=== PATIENT | male | born 1995 | race African-American/Black ===

== ENCOUNTER 2020-09-19 04:08 | Emergency (ER) | payer SELFPAY ==
[~2020-09-19 04:08] MED LIST: BENTYL10 MG PO; CLARITIN-D 121 EACH PO; IBUPROFEN800 MG PO; SUDAFED30 MG PO; TAMIFLU 75MG CA75 MG PO; TESSALON PERLE100 MG PO; ZOFRAN8 MG PO
[2020-09-19 04:31] LABS: BILIRUBIN NEGATIVE (NEGATIVE); BLOOD TRACE-LYSED Ery/uL (NEGATIVE); CLARITY CLEAR (CLEAR); COLOR YELLOW (YELLOW); GLUCOSE (U) NORMAL (NORMAL); LEUKOCYTES NEGATIVE Leu/uL (NEGATIVE); NITRITE NEGATIVE (NEGATIVE); PROTEIN NEGATIVE (NEGATIVE); SPECIFIC GRAVITY 1.025 (1.001-1.030); UROBILINOGEN 0.2 mg/dL (0.2-1.0)
[2020-09-19 04:37] LABS: SQUAMOUS EPITHELIAL CELLS RARE; URINARY RBC RARE; URINARY WBC RARE
[2020-09-19 04:48] LABS: BASOPHIL 0.8 % (0-2); EOSINOPHIL 2.3 % (0-5); HCT 44.3 % (42.0-52.0); HGB 14.8 g/dl (13.2-18.0); LYMPHOCYTE 42.4 % (15-48); MCHC 33.4 g/dL (32.0-36.0); MCV 92.7 fL (78.0-100.0); MONOCYTE 7.7 % (0-12); MPV 8.1 fL (6.0-9.5); NEUTROPHIL 46.5 % (41-80); NRBC 0; PLT 402 K/uL (150-400); RBC 4.78 M/uL (4.70-6.00); RDW 12.6 % (11.5-14.0); WBC 9.3 K/uL (4.0-10.5)
[2020-09-19 05:05] LABS: ALBUMIN 3.6 g/dL (3.4-5.0); BILIRUBIN - TOTAL 0.2 mg/dL (0.2-1.0); BUN/CREAT RATIO (CALC) 15.7 RATIO; CREATININE 0.83 mg/dL (0.67-1.17); GLOBULIN (CALCULATION) 3.8 g/dL; POTASSIUM 4.6 mmol/L (3.5-5.1); TOTAL PROTEIN 7.4 g/dL (6.4-8.2)
[2020-09-19] MEDS ORDERED: NORCO 5-325 TA1 EACH PO (05:58)
[2020-09-19] MEDS ORDERED: ROBAXIN750 MG PO (05:58)
[2020-09-19] MEDS ORDERED: IBUPROFEN800 MG PO (05:58)
[2020-09-22 21:06] LABS: CHLAMYDIA TRACHOMATIS, NAA Negative (Negative); NEISSERIA GONORRHOEAE, NAA Negative (Negative)
== END 2020-09-19 06:10 | disposition home or self-care (01) ==
LOC: FER 04:08
PROVIDERS: Emergency Medicine Emergency Medical Services
DX: R10.9 Unspecified abdominal pain (principal); M54.9 Dorsalgia, unspecified; N32.89 Other specified disorders of bladder; K56.41 Fecal impaction; F17.210 Nicotine dependence, cigarettes, uncomplicated
CPT/HCPCS: 36415; 80053; 81001; 85025; 87491; 87591; J7512

== ENCOUNTER 2022-05-19 09:17 | Emergency (ER) | payer SELFPAY ==
[~2022-05-19 09:17] MED LIST changes: +NORCO 5-325 TA1 EACH PO; +ROBAXIN750 MG PO
== END 2022-05-19 11:15 | disposition home or self-care (01) ==
LOC: FER 09:17
DX: U07.1 COVID-19 (principal); R03.0 Elevated blood-pressure reading, without diagnosis of hypertension; F17.200 Nicotine dependence, unspecified, uncomplicated; Z28.310 Unvaccinated for COVID-19
CPT/HCPCS: 99284; U0002